=== PATIENT | female | born 1955 | race Caucasian/White ===

== ENCOUNTER → 2017-10-01 08:04 | Outpatient (CLI) | payer MEDICARE | END | disposition home or self-care (01) | LOC: D.RAD 09-25 09:30 | DX: K21.9 Gastro-esophageal reflux disease without esophagitis (principal) ==

== ENCOUNTER → 2018-01-05 15:09 | Outpatient (CLI) | payer MEDICARE | END | disposition home or self-care (01) | LOC: D.US 15:09 | DX: N28.9 Disorder of kidney and ureter, unspecified (principal) ==

== ENCOUNTER → 2018-03-22 12:39 | Outpatient (CLI) | payer MEDICARE | END | disposition home or self-care (01) | LOC: D.RAD 12:39 | DX: R13.12 Dysphagia, oropharyngeal phase (principal) ==